=== PATIENT | female | born 1990 | race Caucasian/White ===

== ENCOUNTER 2019-12-02 00:12 | Emergency (ER) | payer SELFPAY ==
[~2019-12-02] VITALS: Ht 170.2 cm; Wt 59.0 kg
[2019-12-02 00:31] VITALS: BP 97/57
[2019-12-02] MEDS ORDERED: ACYC800T PO (00:43)
[2019-12-02] MEDS ORDERED: CLON-592 PO (00:43)
[2019-12-02] MEDS ORDERED: BUSP10TA23 PO (00:43)
[2019-12-02] MEDS ORDERED: CITA-144 PO (00:43)
== END 2019-12-02 01:30 | disposition left against medical advice (07) ==
LOC: EMS 00:12
DX: K52.9 Noninfective gastroenteritis and colitis, unspecified (principal); F32.9 Major depressive disorder, single episode, unspecified; F17.210 Nicotine dependence, cigarettes, uncomplicated; Z91.040 Latex allergy status; Z91.013 Allergy to seafood
CPT/HCPCS: Z7502